=== PATIENT | female | born 1985 | race Two or more races ===

== ENCOUNTER 2022-02-20 06:41 | Emergency (ER) | payer BC, OTHER ==
[~2022-02-20] VITALS: Ht 165.1 cm; Wt 49.9 kg
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
[2022-02-20] MEDS ORDERED: MORPHINE SULFATE INJ 4 MG/ML DISP.SYRIN ONE (06:51)
[2022-02-20] MEDS ORDERED: MORPHINE SULFATE INJ 2 MG/ML DISP.SYRIN IM ONE (07:00)
[2022-02-20] MEDS ORDERED: LIDOCAINE 1% INJ 50 ML MDV IJ ONE (07:41)
[2022-02-20] MEDS ORDERED: HYDR-3980 PO (08:41)
[2022-02-20 08:57] VITALS: BP 123/67
== END 2022-02-20 09:00 | disposition home or self-care (01) ==
LOC: ER 06:43
DX: S93.121A Dislocation of metatarsophalangeal joint of right great toe, initial encounter (principal); S20.212A Contusion of left front wall of thorax, initial encounter; V49.49XA Driver injured in collision with other motor vehicles in traffic accident, initial encounter; Y93.89 Activity, other specified; Y92.413 State road as the place of occurrence of the external cause; Y99.8 Other external cause status
CPT/HCPCS: 28630; 71045; 73660 ×2; 96372; 99284; J2270; J3490